=== PATIENT | female | born 1965 | race Caucasian/White ===

== ENCOUNTER 2024-11-14 09:30 | Emergency (ER) | payer OTHER, SELFPAY ==
--- NOTE | ~2024-11-14 | XR_ITS ---
XR foot RT min 3V 11/14/2024 10:02 Indication: Right foot pain Procedure: 4 views right foot Comparison: No prior studies for comparison. 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 Lisfranc joint intact. No acute fracture, subluxation or dislocation. There is a degenerative calcaneal enthesophyte at the plantar surface. No focal soft tissue abnormality. No foreign bodies. Impression: 1: No acute fracture. Reviewed, dictated and finalized at location A. Impression: 1: No acute fracture.
--- OUTSIDE RECORDS SUMMARY | 2024-11-14 09:33 | XMS_ITS | Encounter Summary ---
Author Organization [facility] Healthcare Address [address] [place] [address] Care Team Providers Care Home Care Administrator Name Role Phone Aaron Tirado MD Primary Care Provider [phone]- [phone] Reason for Visit * Diagnostic Imaging (Routine) - Closed Specialty Diagnoses / Procedures Referred By Cuauhtemoc jesus Referred To Contact Procedures Breast Imaging Diagnostic Outside Reference Transcribed Order, Provider Referral ID Status Reason Start Date Expiration Date Visits Re quested Visits Authorized [id number] Closed 04/01/2023 04/30/2024 1 1 Encounter Details Date Type Department Care Team (Late st Contact Info) Description 10/05/2017 Hospital Encounter [facility] [place] [address] Social History Tobacco Use Types Packs/Day Years Used Date Smoking Tobacco: Every Day Cigarettes 0.5 15 Vaping Smokeless Tobacco: Current [facility] Utilities Answer Date Recorded In the past 12 months has [email or web address] electric, gas, oil, or water company threatened to shut off services in your home? No 02/04/2023 Humiliation, Afraid, Rape, and Kick questionnair e Answer Date Recorded Within the last year, have y ou been afraid of your partner or ex-partner? No 02/04/2023 Within the last year, have y ou been humiliated or emotionally abused in other ways by your partner or ex-partner? No Within the last year, have y ou been kicked, hit, slapped, or otherwise physically hurt by your partner or ex-partner? No 02/04/2023 Within the last year, have y ou been raped or forced to have any kind of sexual activity by your partner or ex-partner? No 02/04/2023 Social Connection and Isolation Panel Answer Date Recorded In a typical week, how many times do you talk on the phone with family, friends, or neighbors? More than three times a week 02/04/2023 How often do you get togethe r with friends or relatives? More than three times a week 02/04/2023 How often do you attend chur ch or restorationism services? Never 02/04/2023 Do you belong to any clubs o r organizations such as taoist groups, unions, fraternal or athletic groups, or school groups? No 02/04/2023 How often do you attend meet ings of the clubs or organizations you belong to? Never 02/04/2023 Are you , , di vorced, , never , or living with a partner? 02/04/2023 AUDIT-C Answer Date Recorded Q1: How often do you have a drink containing alc ohol? 2-4 times a month 12/17/2023 Q2: How many drinks containi ng alcohol do you have on a typical day when you are drinking? 5 or 6 12/17/2023 Q3: How often do you have si x or more drinks on one occasion? Weekly 12/17/2023 Overall Financial Resource Strain (CARDIA) Answe r Date Recorded How hard is it for you to pa y for the very basics like food, housing, medical care, and heating? Not hard at all 02/04/2023 PHQ-2 Answer Date Recorded PHQ-2 Total Score (If total score is 3 or more points, staff should administer the PHQ-9) 0 11/08/2024 [facility] - Occupational Stress Questionnaire Answer Date Recorded Do you feel stress - tense, restless, nervous, or anxious, or unable to sleep at night because your mind is troubled all the time - these days? Rather much 02/04/2023 Exercise Vital Sign Answer Date Recorde d On average, how many days pe r week do you engage in moderate to strenuous exercise (like a brisk walk)? 5 days 02/04/2023 On average, how many minutes do you engage in exercise at this level? 30 min 02/04/2023 Hunger Vital Sign Answer Date Recorded Within the past 12 months, y ou worried that your food would run out before you got the money to buy more. Never true 02/05/20 23 Within the past 12 months, t he food you bought just didn't last and you didn't have money to get more. Never true 02/04/2023 PRAPARE - Transportation Answer Date Re corded In the past 12 months, has l ack of transportation kept you from medical appointments or from getting medications? No 04/2022 In the past 12 months, has l ack of transportation kept you from meetings, work, or from getting things needed for daily living? No 02/04/2023 Housing Stability Vital Sign Answer Efraín e Recorded In the last 12 months, was t here a time when you were not able to pay the mortgage or rent on time? No 02/04/2023 In the last 12 months, how many places have you lived? 2 02/04/2023 In the last 12 months, was t here a time when you did not have a steady place to sleep or slept in a custodial (including now)? No 02/04/2023 Personal Safety Answer Date Recorded Have you ever been in or are you currently in a harmful physical or emotional relationship or is someone making you feel afraid or unsafe? Denies 12/17/2023 Comments Unknown Sex and Gender Information Value Date Recorded Sex Assigned at Not on file Legal Sex Female 9:57 AM PRODUCT ASSEMBLER Gender Identity Female 03/02/2024 8:24 AM PRODUCT ASSEMBLER Sexual Orientation Straight 03/02/2024 8: 24 AM PRODUCT ASSEMBLER documented as of this encounter Functional Status * AUDIT-C Score Answer Date of Assessment Author 7 12/17/2023 7:14 AM Isabella Mcqueen RN * Question Answer Date of Assessment Author Q1: How often do you have a drink containing alcohol? 2-4 times a month 12/17/2023 7:14 AM CDT Devaughn, Katharin e I., RN Q2: How many drinks containing alcohol do you have on a typical day when you are drinking? 5 or 6 12/17/2023 7:14 AM CDT David Cantor RN Q3: How often do you have six or more drinks on one occasion? Weekly 12/17/2023 7:14 AM CDT David Cantor I. RN documented as of this encounter Plan of Treatment Not on file documented as of this encounter Procedures Procedure Name Priority Date/Time Associated Diagnosis Comments BREAST IMAGING MG DIAGNOSTIC OUTSIDE REFERENCE Routine 10/05/2017 12:00 AM CDT documented in this encounter Results * Breast Imaging Diagnostic Outside Reference (10/05/2017 12:00 AM CDT) Impressions [facility] - 04/01/2023 12:52 PM PRODUCT ASSEMBLER These images are for Reference purposes only and have not been reviewed by [facility]. There will be no report generated by a [facility] Radiologist. Narrative [facility] - 04/01/2023 12:52 PM PRODUCT ASSEMBLER EXAMINATION: Images For Reference Purposes Only us Provider Transcribed Order IMG MAMMO PROCEDURES Final Result [facility] documented in this encounter Visit Diagnoses Not on filedocumented in this encounter Additional Health Concerns Infection Onset Date Last Indicated Resolved Time COVID: Suspected 10/05/2023 10/05/2023 10/05/2023 10:53 AM CDT COVID19 10/05/2023 10/05/2023 10/15/2023 3:06 AM CDT COVID: Recovered Comment:Added based on recent COVID infection. 10/15/2023 10/15/2023 01/13/2024 3:05 AM C DT COVID: Suspected 04/13/2024 04/13/2024 04/13/2024 11:43 AM PRODUCT ASSEMBLER documented as of this encounter Care Teams Home Care Administrator Relationship Specialty Start Date End Date Aaron Tirado MD [address] [place] [address] PCP - General 06/24/07 02/03/23 documented as of this encounter
--- OUTSIDE RECORDS SUMMARY | 2024-11-14 09:33 | XMS_ITS | Encounter Summary ---
Author Organization [facility] Healthcare Address [address] [place] [address] Care Team Providers Care Lapping Machine Tender Name Role Phone Aaron Tirado MD Primary Care Provider [phone]- [phone] Reason for Visit * Diagnostic Imaging (Routine) - Closed Specialty Diagnoses / Procedures Referred By Cuauhtemoc jesus Referred To Contact Procedures Breast Imaging Diagnostic Outside Reference Transcribed Order, Provider Referral ID Status Reason Start Date Expiration Date Visits Re quested Visits Authorized [id number] Closed 04/01/2023 04/30/2024 1 1 Encounter Details Date Type Department Care Team (Late st Contact Info) Description 10/20/2018 Hospital Encounter [facility] [place] [address] Social History Tobacco Use Types Packs/Day Years Used Date Smoking Tobacco: Every Day Cigarettes 0.5 15 Vaping Smokeless Tobacco: Current [facility] Utilities Answer Date Recorded In the past 12 months has e electric, gas, oil, or water company threatened [...] often do you attend chur ch or roman catholic services? Never 02/04/2023 Do you belong to any clubs o r organizations such as tenriism groups, unions, fraternal or athletic groups, or [...] staff should administer the PHQ-9) 0 11/08/2024 [facility] - Occupational Stress [...] place to sleep or slept in a residential (including now)? No 02/04/2023 Personal Safety Answer Date Recorded Have you ever been in or are you currently in a harmful physical or emotional relationship or is someone making you feel afraid or unsafe? Denies 12/17/2023 Comments Unknown Sex and Gender Information Value Date Recorded Sex Assigned at Not on file Legal Sex Female 9:57 AM BULB WEEDER Gender Identity Female 03/02/2024 8:24 AM BULB WEEDER Sexual Orientation Straight 03/02/2024 8: 24 AM BULB WEEDER documented as of this encounter Functional Status [...] BREAST IMAGING MG DIAGNOSTIC OUTSIDE REFERENCE Routine 10/20/2018 12:00 AM CDT documented in this encounter Results * Breast Imaging Diagnostic Outside Reference (10/20/2018 12:00 AM CDT) Impressions [facility] - 04/01/2023 12:51 PM BULB WEEDER These images are for Reference purposes only and have not been reviewed by [facility]. There will be no report generated by a [facility] Radiologist. Narrative [facility] - 04/01/2023 12:51 PM BULB WEEDER EXAMINATION: Images For Reference Purposes Only us [...] COVID: Suspected 04/13/2024 04/13/2024 04/13/2024 11:43 AM BULB WEEDER documented as of this encounter Care Teams Lapping Machine Tender Relationship Specialty Start Date End Date Aaron Tirado MD [address] [place] [address] PCP - General 06/24/07 02/03/23 documented as of this encounter
--- OUTSIDE RECORDS SUMMARY | 2024-11-14 09:33 | XMS_ITS | Encounter Summary ---
Author Organization [facility] Healthcare Address [address] [place] [address] Care Team Providers Care Glass Loading Equipment Tender Name Role Phone Aaron Tirado MD Primary Care Provider [phone]- [phone] Reason for Visit * Diagnostic Imaging (Routine) - Closed Specialty Diagnoses / Procedures Referred By Cuauhtemoc jesus Referred To Contact Procedures Breast Imaging Diagnostic Outside Reference Transcribed Order, Provider Referral ID Status Reason Start Date Expiration Date Visits Re quested Visits Authorized [id number] Closed 04/01/2023 04/30/2024 1 1 Encounter Details Date Type Department Care Team (Late st Contact Info) Description 02/22/2019 Hospital Encounter [facility] [place] [address] Social History Tobacco Use Types Packs/Day Years Used Date Smoking Tobacco: Every Day Cigarettes 0.5 15 Vaping Smokeless Tobacco: Current [facility] Utilities Answer Date Recorded In the past [...] often do you attend chur ch or baptism services? Never 02/04/2023 Do you belong to any clubs o r organizations such as pentecostal groups, unions, fraternal or athletic groups, or [...] staff should administer the PHQ-9) 0 11/08/2024 [facility] - Occupational Stress [...] place to sleep or slept in a jail (including now)? No 02/04/2023 Personal Safety Answer Date Recorded Have you ever been in or are you currently in a harmful physical or emotional relationship or is someone making you feel afraid or unsafe? Denies 12/17/2023 Comments Unknown Sex and Gender Information Value Date Recorded Sex Assigned at Not on file Legal Sex Female 9:57 AM WILD OYSTER HARVESTER Gender Identity Female 03/02/2024 8:24 AM WILD OYSTER HARVESTER Sexual Orientation Straight 03/02/2024 8: 24 AM WILD OYSTER HARVESTER documented as of this encounter Functional Status * AUDIT-C Score Answer Date of Assessment Author 7 12/17/2023 7:14 AM Isabella Mcqueen RN * Question Answer Date of Assessment Author Q1: How often do you have a drink containing alcohol? 2-4 times a month 12/17/2023 7:14 AM David Mcqueen RN Q2: How many drinks containing alcohol do you have on a typical day when you are drinking? 5 or 6 12/17/2023 7:14 AM YOLANDAT David Cantor RN Q3: How often do you have six or more drinks on one occasion? Weekly 12/17/2023 7:14 AM YOLANDAT David Cantor RN documented as of this encounter Plan of Treatment Not on file documented as of this encounter Procedures Procedure Name Priority Date/Time Associated Diagnosis Comments BREAST IMAGING MG DIAGNOSTIC OUTSIDE REFERENCE Routine 02/22/2019 12:00 AM WILD OYSTER HARVESTER documented in this encounter Results * Breast Imaging Diagnostic Outside Reference (02/22/2019 12:00 AM WILD OYSTER HARVESTER) Impressions [facility] - 04/01/2023 12:48 PM WILD OYSTER HARVESTER These images are for Reference purposes only and have not been reviewed by [facility]. There will be no report generated by a [facility] Radiologist. Narrative [facility] - 04/01/2023 12:48 PM WILD OYSTER HARVESTER EXAMINATION: Images For Reference Purposes Only us [...] COVID: Suspected 04/13/2024 04/13/2024 04/13/2024 11:43 AM WILD OYSTER HARVESTER documented as of this encounter Care Teams Glass Loading Equipment Tender Relationship Specialty Start Date End Date Aaron Tirado MD [address] [place] [address] PCP - General 3/20/08 10/31/23 documented as of this encounter
--- OUTSIDE RECORDS SUMMARY | 2024-11-14 09:33 | XMS_ITS | Encounter Summary ---
Author Organization [facility] Healthcare Address [address] [place] [address] Care Team Providers Care Tile Layer Supervisor Name Role Phone Meron Lopes FUR DRY CLEANER Primary Care Provider [phone] Encounter Details Date Type Department Care Team (Late st Contact Info) Description 11/10/2024 Results Follow-Up [facility] [address] [place] [address] Breanna Uribe, SAVANNA [address] [place] [address] Vitamin D 25 hydroxy, Vitamin B12, TSH, Additional followed-up results: 6 Social History Tobacco Use Types Packs/Day Years Used Date Smoking Tobacco: Every Day Cigarettes 0.5 15 Vaping Smokeless Tobacco: Current [facility] Utilities Answer Date Recorded In the [...] 02/04/2023 How often do you attend chur or yazidi services? Never 02/04/2023 Do you belong to any clubs o r organizations such as evangelical groups, unions, fraternal or athletic groups, or [...] staff should administer the PHQ-9) 0 11/08/2024 [facility] - Occupational [...] place to sleep or slept in a detention (including now)? No 02/04/2023 Personal Safety Answer Date Recorded Have you ever been in or are you currently in a harmful physical or emotional relationship or is someone making you feel afraid or unsafe? Denies 12/17/2023 Comments Unknown Sex and Gender Information Value Date Recorded Sex Assigned at Not on file Legal Sex Female 9:57 AM KLYSTROM TUBE TESTER Gender Identity Female 03/02/2024 8:24 AM KLYSTROM TUBE TESTER Sexual Orientation Straight 03/02/2024 8: 24 AM KLYSTROM TUBE TESTER documented as of this encounter Plan of Treatment Not on file documented as of this encounter Visit Diagnoses Not on filedocumented in this encounter Care Teams Tile Layer Supervisor Relationship Specialty Start Date End Date Meron Lopes NP PCP - General Family Medicine 02/04/23 documented as of this encounter
--- OUTSIDE RECORDS SUMMARY | 2024-11-14 09:33 | XMS_ITS | Encounter Summary ---
Author Organization [facility] Healthcare Address [address] [place] [address] Care Team Providers Care Bleach Chlorinator Name Role Phone Aaron Tirado MD Primary Care Provider [phone] Reason for Visit * Diagnostic Imaging (Routine) - Closed Specialty Diagnoses / Procedures Referred By Cuauhtemoc jesus Referred To Contact Procedures Breast Imaging US Outside Reference Transcribed Order, Provider Referral ID Status Reason Start Date Expiration Date Visits Re quested Visits Authorized [id number] Closed 04/01/2023 04/30/2024 1 1 Encounter Details Date Type Department Care Team (Late st Contact Info) Description 08/26/2019 Hospital Encounter [facility]) [address] [place] [id number] Social History Tobacco Use Types Packs/Day Years Used Date Smoking Tobacco: Every Day Cigarettes 0.5 15 Vaping Smokeless Tobacco: Current [facility] Utilities Answer Date Recorded In the past 12 months has [employer] electric, gas, oil, or water company threatened [...] often do you attend chur ch or denominational services? Never 02/04/2023 Do you belong to any clubs o r organizations such as congregational groups, unions, fraternal or athletic groups, or [...] staff should administer the PHQ-9) 0 11/08/2024 [facility] - Occupational Stress [...] place to sleep or slept in a long-term (including now)? No 02/04/2023 Personal Safety Answer Date Recorded Have you ever been in or are you currently in a harmful physical or emotional relationship or is someone making you feel afraid or unsafe? Denies 12/17/2023 Comments Unknown Sex and Gender Information Value Date Recorded Sex Assigned at Not on file Legal Sex Female 9:57 AM CONSTRUCTION EQUIPMENT TECHNICIAN Gender Identity Female 03/02/2024 8:24 AM CONSTRUCTION EQUIPMENT TECHNICIAN Sexual Orientation Straight 03/02/2024 8: 24 AM CONSTRUCTION EQUIPMENT TECHNICIAN documented as of this encounter Functional Status [...] Priority Date/Time Associated Diagnosis Comments BREAST IMAGING US OUTSIDE REFERENCE Routine 08/26/2019 12:00 AM CDT documented in this encounter Results * Breast Imaging US Outside Reference (08/26/2019 12:00 AM CDT) Impressions [facility] - 04/01/2023 12:47 PM CONSTRUCTION EQUIPMENT TECHNICIAN These images are for Reference purposes only and have not been reviewed by [facility]. There will be no report generated by a [facility] Radiologist. Narrative [facility] - 04/01/2023 12:47 PM CONSTRUCTION EQUIPMENT TECHNICIAN EXAMINATION: Images For Reference Purposes Only us [...] COVID: Suspected 04/13/2024 04/13/2024 04/13/2024 11:43 AM CONSTRUCTION EQUIPMENT TECHNICIAN documented as of this encounter Care Teams Bleach Chlorinator Relationship Specialty Start Date End Date Aaron Tirado MD [address] [place] [address] PCP - General 06/24/07 02/03/23 documented as of this encounter
--- OUTSIDE RECORDS SUMMARY | 2024-11-14 09:33 | XMS_ITS | Clinical Summary ---
Author Organization [facility] Address [address] [place] [address] Phone Care Team Providers Care Sawdust Drier Name Role Phone Rony Gaspar MD Primary Care Provider [phone] Allergies Active Allergy Reactions Criticality Noted Date Comments Doxycycline Other (See Comments) Low 03/23/2023 Does not want to be prescribed doxycycline. Mother and daughter have taken and made them pass out. Medications fluconazole (DIFLUCAN) 150 mg Oral tabletIndication s:Vaginal discharge Take 1 Tab by mouth daily. 1 Tab 10 09/16/2010 Active norethindrone-et hinyl estradiol (FEMHRT LOW DOSE) 0.5-2.5 mg-mcg Oral tablet Take 1 Tab by mouth daily. 1 Package 3 12/02/2011 Active ALPRAZolam (XANAX) 0.25 mg tablet Take 0.25 mg by mouth. 01/15/2024 Active aspirin (CORRINE CHEWABLE) 81 mg Tablet, Chewable Take 81 mg by mouth daily. Active levothyroxine 25 mcg tablet Take 25 mcg by mouth daily. 12/09/2023 Active ibuprofen (ADVIL;MOTRIN) 100 mg/5 mL suspension Take by mouth every 6 hours as needed for Pain, Mild. Active naproxen sodium (ALEVE) 220 mg Tablet Take 220 mg by mouth. Active atorvastatin (LIPITOR) 10 mg tablet Take 1 Tablet (10 mg) by mouth daily. 100 Tablet 3 02/29/2024 Active Active Problems No known active problems Encounters Date Type Department Care Team Description 11/08/2024 External Device Data [facility] Provider, Abstract 09/27/2024 External Device Data [facility] Provider, Abstract 08/30/2024 External Device Data [facility] Provider, Abstract 08/24/2024 External Device Data [facility] Provider, Abstract 08/23/2024 External Device Data [facility] Provider, Abstract from Last 3 Months Family History Medical History Relation Name Comments Cancer Brother Diabetes Brother Cancer Father Hypertension Father Diabetes Sister Relation Name Status Comments Brother Father Alive Maternal Grandfather Maternal Grandmother Mother Alive Paternal Grandfather Paternal Grandmother Sister Alive Social History Tobacco Use Types Packs/Day Years Used Date Smoking Tobacco: Some Days Cigarettes Smokeless Tobacco: Never Tobacco Cessation:Ready to Q uit: Not Asked; Counseling Given: Not Answered Alcohol Use Standard Drinks/Week Comments Yes 0 (1 standard drink = 0.6 oz pur e alcohol) social Comments No Sex and Gender Information Value Date Recorded Sex Assigned at Not on file Legal Sex Female 6:02 AM [employer] Gender Identity Not on file Sexual Orientation Not on file Last Filed Vital Signs Vital Sign Reading Time Taken Comments Blood Pressure 131/88 02/29/2024 3:01 PM [employer] PRES[employer] Pulse 98 02/29/2024 3:01 PM [employer] PRES[employer] Temperature - - Respiratory Rate - - Oxygen Saturation 97% 02/29/2024 3:01 PM [employer] PRES[employer] Inhaled Oxygen Concentration - - Weight 88 kg (194 lb) 02/29/2024 3:01 PM [employer] PRES[employer] Height 167.6 cm (5' 6) 02/29/2024 3:01 PM [employer] PRES[employer] Body Mass Index 31.31 02/29/2024 3:01 PM [employer] PRESIDENT Plan of Treatment Health Maintenance Due Date Last Done Comments Pre-Diabetes and Diabetes Screening 1965 DTAP/TDAP/TD VACCINES (1 - Tdap) 10/04/1983 FIT-DNA Q 3 years 2009 FIT/FOBT Q 1 year 2009 Flex Sig/CT Colonography Q 5 years 2009 PAP SMEAR 09/16/2013 09/16/2010 ZOSTER VACCINE (1 of 2) 2014 CERVICAL CANCER SCREENING 09/17/2015 HPV/Cotest (21-29) 09/17/2015 09/16/2010 HPV/Cotest (30-65) 09/17/2015 09/16/2010 BREAST CANCER SCREENING 10/18/2024 10/19/19 24, 05/04/2023, 03/31/2023, Additional history exists INFLUENZA VACCINE (#1) 2024 COLORECTAL SCREENING 12/16/2033 12/17/2023, 12/17/19 Colorectal Cancer Screening 12/16/2033 RSV VACCINE (60+ or ) (1 - 1-dose 75+ series) 10/04/2039 HEPATITIS B VACCINES Aged Out No long er eligible based on patient's age to complete this topic Procedures Procedure Name Priority Date/Time Associated Diagnosis Comments CERV/VAG CYTOPATH, THIN PREP IMAGR RFLX HPV Routine 09/16/2010 5:01 PM CDT Routine gynecological examination from Last 3 Months or Most Recently Relevant to Health Maintenance Results * CERV/VAG CYTOPATH, THIN PREP IMAGR RFLX HPV (09/16/2010 5:01 PM CDT) PAP INTERP Negative for intraepithelial lesion or malignancy. [facility] CYTOLOGY INFECTION Fungal organisms morphologically consistent with Skye spp. [facility] Bilingual [employer] Retail Pap Comment This Pap test has been evaluated with computer assisted technology. Based on the cytology result, reflex High Risk HPV DNA testing was not performed. [facility] ADEQUACY: Satisfactory for evaluation. Endocervical/trans formation zone component present. [facility] CLINICAL INFORMATION Information not provided [facility] SOURCE [facility] PREV PAP: WNL [facility] CYTOTECHNOLOGI ST: [place], [place](ASCP) [facility] Comment: Lab test performed by: [employer] [address] [address] CAROL MCCALL DO LAST MENSTRUAL PERIOD ABLATION [facility] PREV BX: INFORMATION NOT PROVIDED [facility] REPORT STATUS [facility]AL [facility] Endoc[facility]ical 09/16/2010 5:01 PM CDT 09/16/2010 5:04 PM CDT Comment:ENDOCERVICAL us Murphy Ji MD PATHOLOGY/CYTOLOGY ORDERA MARA Final Result [facility] CLIA# [id number] [address] [place] [address] from Last 3 Months or Most Recently Relevant to [place] [address] [place] [address] [facility] [id number] Care Teams Sawdust Drier Relationship Specialty Start Date End Date Rony Gaspar MD [address] [place] [address] PCP - General Family Practice 12/17/23
--- OUTSIDE RECORDS SUMMARY | 2024-11-14 09:33 | XMS_ITS | Clinical Summary ---
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 diagnostic for diabetes. In the absence of unequivocal hyperglycemia, results should be confirmed by repeat testing. The classification and Diagnosis of Diabetes Diabetes Care 202; 46: S19-S40. Current interpretive data was last revised 2022. Testing performed by: [address] [address] Calcium 9.5 8.5 - 10.3 mg/dL [facility] ([place]) Comment:Testing performed by : [address], [address] Bilirubin, total 0.9 0.1 - 1.2 mg/dL [facility] ([place]) Comment:Testing performed by : [address] [address] Protein, pl 7.1 6.5 - 8.5 g/dL [facility] ([place]) Comment:Testing performed by : [facility], [address] [place] [address]., [address] Albumin 4.4 3.5 - 5.0 g/dL [facility] ([place]) Comment:Testing performed by : [facility], [address] [place] [address]., [address] Alk phos 76 40 - 130 Units/L [facility] ([place]) Comment:Testing performed by : [facility], [address] [place] [address]., [address] ALT 36 7 - 45 Units/L [facility] ([place]) Comment:Testing performed by : [facility], [address] [place] [address], [address] AST 33 10 - 45 Units/L [facility] ([place]) Comment:Testing performed by : [facility], [address] [place] [address]., [address] Blood 11/10/2024 8:14 AM CDT 11/10/2024 1:56 PM CDT us Breanna Uribe NP LAB BLOOD ORDERABLES Final Re sult [facility] ([place]) [facility] [place] [address] * MRI Breast Bilateral W WO Contrast (10/14/2024 10:17 AM CDT) Anatomical Region Laterality Modality Breast Bilateral Magnetic Resonan ce 10/14/2024 3:23 PM CDT Impressions 10/14/2024 4:11 PM CDT Asymmetric, left greater than right, marked background parenchymal enhancement that follows the breast parenchymal pattern. Given the asymmetric appearance of the background enhancement, recommend six-month follow-up breast MR to confirm benignity. OVERALL FINAL ASSESSMENT: BI-RADS Category 3: Probably Benign. RECOMMENDATION: Follow-up bilateral breast MR in 6 months. Dictated by: Aj Cornejo M.D. The radiology attending physician has personally reviewed this study, and had reviewed and/or edited this written report and agrees with it. Electronically signed by: Sonia Lainez M.D. Narrative 10/14/2024 4:11 PM CDT EXAMINATION: 1. MRI EXAMINATION OF THE BREASTS WITH AND WITHOUT CONTRAST 2. 3D POST PROCESSING ON A DEDICATED 3D WORKSTATION HISTORY: High-risk Screening. 59-year-old woman, now approximately 9.5 years status post right partial mastectomy and sentinel lymph node biopsy for a right breast T1aN0 invasive ductal carcinoma. She did not undergo adjuvant chemotherapy. She underwent adjuvant radiation therapy and was then initiated on endocrine therapy, completing 5 years of treatment. She underwent ultrasound-guided core needle biopsy for a BI-RADS Category 4A cystic mass in the 12 o'clock position of the left breast on 05/07/2023, which resulted as cysts with apocrine metaplasia. She underwent stereotactic tissue sampling of a left central upper developing asymmetry on 04/28/2024 which demonstrated benign proliferative epithelial changes with associated microcalcifications and pseudo-angiomatous stromal hyperplasia. TECHNIQUE: MRI examination of the breasts per breast tumor protocol with and without gadolinium contrast. A dedicated breast imaging coil was used. The images were transferred to a breast CAD system for 3D post processing and contrast kinetics analysis. CONTRAST: Gadoterate meglumine, 16 ml COMPARISON: Stereotactic breast biopsy from 04/28/2024, diagnostic mammography from 04/20/2024, ultrasound-guided breast biopsy from 05/06/2023, ultrasound left breast from 05/04/2023, multiple other previous mammography studies, dating back to 2007. BREAST COMPOSITION: Scattered fibroglandular tissue BACKGROUND PARENCHYMAL ENHANCEMENT: Marked, which lowers the sensitivity of MRI FINDINGS: Two areas of susceptibility artifact in the left upper breast correspond to previously placed tissue markers. Asymmetric marked background parenchymal enhancement, left greater than right, without suspicious mass or non-mass enhancement. A preponderance of enhancing tissue in the left breast corresponds to the two sites of prior benign biopsies. No abnormally enlarged lymph nodes are identified in the visualized portions of either axilla. us Antonieta Gaspar NP IMG MRI PROCEDURES Final R esult * Diagnostic Mammogram Bilateral W Raj (04/20/2024 10:34 AM CYCLE ANALYST) Anatomical Region Laterality Modality Breast Bilateral Mammography 04/20/2024 1:21 PM CYCLE ANALYST Impressions 04/20/2024 1:25 PM CYCLE ANALYST Developing asymmetry in the left breast, which is moderately suspicious for malignancy. Biopsy of this lesion is warranted and amenable to stereotactic approach. OVERALL FINAL ASSESSMENT: SUSPICIOUS. BI-RADS Category 4B: Moderate suspicion for malignancy. RECOMMENDATION: Dr. Farzana Galvez discussed the above findings and recommendations with the patient. She has been scheduled for stereotactic biopsy on 04/27/2024 at 1:15 PM. This facility will contact the referring clinician's office for an order. Dictated by: Bob Waite M.D. The radiology attending physician has personally reviewed this study, and had reviewed and/or edited this written report and agrees with it. Electronically signed by: Farzana Galvez M.D. Narrative 04/20/2024 1:25 PM CYCLE ANALYST EXAMINATION: BILATERAL DIGITAL DIAGNOSTIC MAMMOGRAM INCLUDING CAD AND BILATERAL DIGITAL BREAST TOMOSYNTHESIS; LEFT BREAST SONOGRAM HISTORY: 58-year-old woman with history of invasive ductal carcinoma in the right breast status post lumpectomy in 2014 with focal asymmetries noted on the prior mammogram in the left breast the superiormost of the two is previously biopsied showing cysts with apocrine metaplasia. COMPARISON: Multiple mammograms dating back to 01/02/2020 TECHNIQUE: Full field digital mammographic views of BOTH breasts were performed, including computer aided detection (CAD) and BILATERAL digital breast tomosynthesis (DBT). Directed ultrasound evaluation of the LEFT breast was performed. BREAST PARENCHYMAL COMPOSITION: There are scattered areas of fibroglandular density. MAMMOGRAM FINDINGS: Developing asymmetry in the left central breast, which is of increased conspicuity compared to the prior mammogram. Surgical clip at the site of prior biopsy-proven cysts with apocrine metaplasia. The right breast is negative. There is no new suspicious abnormality in the RIGHT breast. SONOGRAM FINDINGS: There is no sonographic correlate for the developing asymmetry in the left central breast. Procedure Note Farzana Galvez MD - 04/20/2024 EXAMINATION: BILATERAL DIGITAL DIAGNOSTIC MAMMOGRAM INCLUDING CAD AND BILATERAL DIGITAL BREAST TOMOSYNTHESIS; LEFT BREAST SONOGRAM HISTORY: 58-year-old woman with history of invasive ductal carcinoma in the right breast status post lumpectomy in 2014 with focal asymmetries noted on the prior mammogram in the left breast the superiormost of the two is previously biopsied showing cysts with apocrine metaplasia. COMPARISON: Multiple mammograms dating back to 01/02/2020 TECHNIQUE: Full field digital mammographic views of BOTH breasts were performed, including computer aided detection (CAD) and BILATERAL digital breast tomosynthesis (DBT). Directed ultrasound evaluation of the LEFT breast was performed. BREAST PARENCHYMAL COMPOSITION: There are scattered areas of fibroglandular density. MAMMOGRAM FINDINGS: Developing asymmetry in the left central breast, which is of increased conspicuity compared to the prior mammogram. Surgical clip at the site of prior biopsy-proven cysts with apocrine metaplasia. The right breast is negative. There is no new suspicious abnormality in the RIGHT breast. SONOGRAM FINDINGS: There is no sonographic correlate for the developing asymmetry in the left central breast. IMPRESSION: Developing asymmetry in the left breast, which is moderately suspicious for malignancy. Biopsy of this lesion is warranted and amenable to stereotactic approach. OVERALL FINAL ASSESSMENT: SUSPICIOUS. BI-RADS Category 4B: Moderate suspicion for malignancy. RECOMMENDATION: Dr. Farzana Galvez discussed the above findings and recommendations with the patient. She has been scheduled for stereotactic biopsy on 04/27/2024 at 1:15 PM. This facility will contact the referring clinician's office for an order. Dictated by: Bob Waite M.D. The radiology attending physician has personally reviewed this study, and had reviewed and/or edited this written report and agrees with it. Electronically signed by: Farzana Galvez M.D. Antonieta Gaspar NP IM MAMMO PROCEDURES Final Result * Colonoscopy (12/17/2023 7:09 AM CDT) Anatomical Region Laterality Modality Other Narrative Procedure Note Shad Henderson MD - 12/17/2023 7:09 AM CDT [facility] Patient Name: Angélica Rodarte Procedure Date: 12/17/2023 7:09 AM Date of : 1965 Admit Type: Outpatient Age: 58 Gender: Female Attending MD: Shad Henderson M.D. Room: REPLACED BY [facility] ENDOSCOPY ROOM 2 Note Status: Finalized Patient Profile: This is a 58 year old female history of hypothyroidism, breast cancer, anxiety anddepression here for colon Polyp surveillance. Last colonoscopy 5-6 years ago per patient had a few benign polyps. Family history father with colon cancer. Procedure: Colonoscopy Indications: Screening in patient at increased risk: Familyhistory of 1st-degree relative with colorectal cancer, High risk colon cancer surveillance: Personal history of colonic polyps, Last colonoscopy 5 years ago Referring MD: Michaela Montalvo Providers: Shad Henderson M.D. Impression: - Perianal skin tags found on perianal exam. - One 5 mm polyp in the transverse colon, removedwith a cold snare. Resected and retrieved. - Two 5 to 6 mm polyps in the descending colon, removed with a cold snare. Resected andretrieved. - Diverticulosis in the left colon. - External and internal hemorrhoids. - Tortuous colon. Recommendation: - Patient has a contact number available for emergencies. The signs and symptoms of potential delayed complications were discussed with thepatient. Return to normal activities tomorrow. Written discharge instructions were provided to thepatient. - Discharge patient to home (with escort). - Resume previous diet. - Continue present medications. - Await pathology results. - Repeat colonoscopy in 3 years for surveillancebased on pathology results. - Return to referring physician as previously scheduled. Medicines: Monitored Anesthesia Care Complications: No immediate complications. Estimated Blood Loss: Estimated blood loss was minimal. Procedure: Pre-Anesthesia Assessment: - Prior to the procedure, a History and Physicalwas performed, and patient medications and allergieswere reviewed. The patient is competent. The risks and benefits of the procedure and the sedation optionsand risks were discussed with the patient. Allquestions were answered and informed consent was obtained. Patient identification and proposed procedure were verified by the physician, the building coordinator and the electroplating technician in the endoscopy suite. Mental Status Examination: normal. Prophylactic Antibiotics: The patient does not require prophylactic antibiotics. Prior Anticoagulants: The patient has taken no anticoagulant or antiplatelet agents. Afterreviewing the risks and benefits, the patient was deemed in satisfactory condition to undergo the procedure.The anesthesia plan was to use monitored anesthesiacare (MAC). Immediately prior to administration of medications, the patient was re-assessed foradequacy to receive sedatives. The heart rate, respiratory rate, oxygen saturations, blood pressure, adequacyof pulmonary ventilation, and response to care were monitored throughout the procedure. The physical status of the patient was re-assessed after the procedure. The benefits, risks and alternatives of theprocedure and sedation were discussed and informed consentwas obtained. All questions were answered. Please referto the signed informed consent document in the medical record. The bowel preparation used was Miralax via split dose instruction. The bowel preparation usedwas bisacodyl tablets via split dose instruction. The scope was passed under direct vision. TheColonoscope [id number] was introduced through the anus and advanced to the the cecum, identified by appendiceal orifice and ileocecal valve. The colonoscopy was somewhat difficult due to atortuous colon. The patient tolerated the procedure well.The quality of the bowel preparation was adequate.Bowel prep was administered using a split dose. Findings: Skin tags were found on perianal exam. A 5 mm polyp was found in the transverse colon. The polyp wassessile. The polyp was removed with a cold snare. Resection and retrieval were complete. Two flat polyps were found in the descending colon. The polyps were 5to 6 mm in size. These polyps were removed with a cold snare. Resectionand retrieval were complete. A few small-mouthed diverticula were found in the left colon. External and internal hemorrhoids were found during retroflexion. The colon (entire examined portion) was tortuous. Advancing the scope required using manual pressure. Shad Henderson M.D. 12/17/2023 9:04:02 AM Number of Addenda: 0 Note Initiated On: 12/17/2023 7:09 AM Procedure Code(s): --- Professional --- 17104, Colonoscopy, flexible; with removal of tumor(s), polyp(s), or other lesion(s) by snare technique --- Technical --- 34317, Colonoscopy, flexible; with removal of tumor(s), polyp(s), or other lesion(s) by snare technique Diagnosis Code(s): --- Professional --- Z80.0, Family history of malignant neoplasm of digestive organs Z86.010, Personal history of colonic polyps D12.3, Benign neoplasm of transverse colon (hepatic flexure orsplenic flexure) D12.4, Benign neoplasm of descending colon K64.8, Other hemorrhoids K64.4, Residual hemorrhoidal skin tags K57.30, Diverticulosis of large intestine without perforation orabscess without bleeding Q43.8, Other specified congenital malformations of intestine --- Technical --- Z80.0, Family history of malignant neoplasm of digestive organs Z86.010, Personal history of colonic polyps D12.3, Benign neoplasm of transverse colon (hepatic flexure orsplenic flexure) D12.4, Benign neoplasm of descending colon K64.8, Other hemorrhoids K64.4, Residual hemorrhoidal skin tags K57.30, Diverticulosis of large intestine without perforation orabscess without bleeding Q43.8, Other specified congenital malformations of intestine CPT copyright 202 [employer]. All rights reserved. The codes documented in this report are preliminary and upon multi craft maintenance technician reviewmay be revised to meet current compliance requirements. Recognized by the [employer] for promoting quality in endoscopy Shad Henderson MD ENDOSCOPY PROCEDURES Final Resul t from Last 3 Months or Most Recently Relevant to Health Maintenance Insurance [facility] Advance Directives For more information, please contact: [phone] * Full Code (Latest Code Status on File) Date Activated Date Inactivated Comments 12/17/2023 7:06 AM 12/17/2023 1:48 PM * Full Code Date Activated Date Inactivated Comments 12/17/2023 7:05 AM 12/17/2023 7:06 AM Care Teams Four Slide Machine Operator Relationship Specialty Start Date End Date Meron Lopes NP PCP - General Family Medicine 02/04/23
--- OUTSIDE RECORDS SUMMARY | 2024-11-14 09:33 | XMS_ITS | Encounter Summary ---
Author Organization [facility] Healthcare Address [address] [place] [address] Care Team Providers Care Sql Ssrs Ssis Developer Name Role Phone Aaron Tirado MD Primary Care Provider [phone] Reason for Visit * Diagnostic Imaging (Routine) - Closed Specialty Diagnoses / Procedures Referred By Cuauhtemoc jesus Referred To Contact Procedures Breast Imaging US Outside Reference Transcribed Order, Provider Referral ID Status Reason Start Date Expiration Date Visits Re quested Visits Authorized [id number] Closed 04/01/2023 04/30/2024 1 1 Encounter Details Date Type Department Care Team (Late st Contact Info) Description 02/22/2019 12:05 AM E/M ENGINEER Hospital Encounter [facility] [address] [place] [id number] Social History Tobacco Use Types Packs/Day Years Used Date Smoking Tobacco: Every Day Cigarettes 0.5 15 Vaping Smokeless Tobacco: Current [facility] Utilities Answer Date Recorded In the past 12 months has th e electric, gas, oil, or water company [...] often do you attend chur ch or congregational services? Never 02/04/2023 Do you belong to any clubs o r organizations such as sabianist groups, unions, fraternal or athletic groups, or [...] staff should administer the PHQ-9) 0 11/08/2024 [facility] Occupational Stress Questionnaire Answer [...] place to sleep or slept in a senior living (including now)? No 02/04/2023 Personal Safety Answer Date Recorded Have you ever been in or are you currently in a harmful physical or emotional relationship or is someone making you feel afraid or unsafe? Denies 12/17/2023 Comments Unknown Sex and Gender Information Value Date Recorded Sex Assigned at Not on file Legal Sex Female 9:57 AM E/M ENGINEER Gender Identity Female 03/02/2024 8:24 AM E/M ENGINEER Sexual Orientation Straight 03/02/2024 8: 24 AM E/M ENGINEER documented as of this encounter Functional Status [...] drinking? 5 or 6 12/17/2023 7:14 AM David Mcqueen RN Q3: How often do you have six or more drinks on one occasion? Weekly 12/17/2023 7:14 AM David Mcqueen RN documented as of this encounter Plan of Treatment Not on file documented as of this encounter Procedures Procedure Name Priority Date/Time Associated Diagnosis Comments BREAST IMAGING US OUTSIDE REFERENCE Routine 02/22/2019 12:05 AM E/M ENGINEER documented in this encounter Results * Breast Imaging US Outside Reference (02/22/2019 12:05 AM E/M ENGINEER) Impressions [facility] - 04/01/2023 12:50 PM E/M ENGINEER These images are for Reference purposes only and have not been reviewed by [facility]. There will be no report generated by a [facility] Radiologist. Narrative [facility] - 04/01/2023 12:50 PM E/M ENGINEER EXAMINATION: Images For Reference Purposes Only us [...] COVID: Suspected 04/13/2024 04/13/2024 04/13/2024 11:43 AM E/M ENGINEER documented as of this encounter Care Teams Sql Ssrs Ssis Developer Relationship Specialty Start Date End Date Aaron Tirado MD [address] [place] [address] PCP - General 06/24/07 02/03/23 documented as of this encounter
--- OUTSIDE RECORDS SUMMARY | 2024-11-14 09:34 | XMS_ITS | Encounter Summary ---
Author Organization [facility] Healthcare Address [address] [place] [address] Care Team Providers Care Industrial Engineering Technologist Name Role Phone Aaron Tirado MD Primary Care Provider [phone]- [phone] Reason for Visit * Diagnostic Imaging (Routine) - Closed Specialty Diagnoses / Procedures Referred By Cuauhtemoc jesus Referred To Contact Procedures Breast Imaging US Outside Reference Transcribed Order, Provider Referral ID Status Reason Start Date Expiration Date Visits Re quested Visits Authorized [id number] Closed 04/01/2023 04/30/2024 1 1 Encounter Details Date Type Department Care Team (Late st Contact Info) Description 04/02/2020 Hospital Encounter [facility] [address] [place] [id number] Social History Tobacco Use Types Packs/Day Years Used Date Smoking Tobacco: Every Day Cigarettes 0.5 15 Vaping Smokeless Tobacco: Current [facility] Utilities Answer Date Recorded In the past [...] often do you attend chur ch or yarsanism services? Never 02/04/2023 Do you belong to any clubs o r organizations such as gnosticism groups, unions, fraternal or athletic groups, or [...] staff should administer the PHQ-9) 0 11/08/2024 [facility] - Occupational [...] place to sleep or slept in a fpc (including now)? No 02/04/2023 Personal Safety Answer Date Recorded Have you ever been in or are you currently in a harmful physical or emotional relationship or is someone making you feel afraid or unsafe? Denies 12/17/2023 Comments Unknown Sex and Gender Information Value Date Recorded Sex Assigned at Not on file Legal Sex Female 9:57 AM BOTTLE CARRIER Gender Identity Female 03/02/2024 8:24 AM BOTTLE CARRIER Sexual Orientation Straight 03/02/2024 8: 24 AM BOTTLE CARRIER documented as of this encounter Functional Status [...] Comments BREAST IMAGING US OUTSIDE REFERENCE Routine 04/02/2020 12:00 AM BOTTLE CARRIER documented in this encounter Results * Breast Imaging US Outside Reference (04/02/2020 12:00 AM BOTTLE CARRIER) Impressions [facility] - 04/01/2023 12:44 PM BOTTLE CARRIER These images are for Reference purposes only and have not been reviewed by [facility]. There will be no report generated by a [facility] Radiologist. Narrative [facility] - 04/01/2023 12:44 PM BOTTLE CARRIER EXAMINATION: Images For Reference Purposes Only us [...] COVID: Suspected 04/13/2024 04/13/2024 04/13/2024 11:43 AM BOTTLE CARRIER documented as of this encounter Care Teams Industrial Engineering Technologist Relationship Specialty Start Date End Date Aaron Tirado MD [address] [place] [address] PCP - General 06/24/07 02/03/23 documented as of this encounter
--- OUTSIDE RECORDS SUMMARY | 2024-11-14 09:34 | XMS_ITS | Encounter Summary ---
Author Organization [facility] Healthcare Address [address] [place] [address] Care Team Providers Care Assistant Manager Quality Management Name Role Phone Aaron Tirado MD Primary Care Provider [phone] Reason for Visit * Diagnostic Imaging (Routine) - Closed Specialty Diagnoses / Procedures Referred By Cuauhtemoc jesus Referred To Contact Procedures Breast Imaging Diagnostic Outside Reference Transcribed Order, Provider Referral ID Status Reason Start Date Expiration Date Visits Re quested Visits Authorized [id number] Closed 04/01/2023 04/30/2024 1 1 Encounter Details Date Type Department Care Team (Late st Contact Info) Description 12/09/2019 Hospital Encounter [facility] [address] [place] [id number] Social History Tobacco Use Types Packs/Day Years Used Date Smoking Tobacco: Every Day Cigarettes 0.5 15 Vaping Smokeless Tobacco: Current [facility] Utilities Answer Date Recorded In the past 12 months has [employer], gas, oil, or water company threatened to [...] often do you attend chur ch or adventist services? Never 02/04/2023 Do you belong to any clubs o r organizations such as mosque groups, unions, fraternal or athletic groups, or [...] staff should administer the PHQ-9) 0 11/08/2024 [facility] - [...] place to sleep or slept in a [place] facility (including now)? No 02/04/2023 Personal Safety Answer Date Recorded Have you ever been in or are you currently in a harmful physical or emotional relationship or is someone making you feel afraid or unsafe? Denies 12/17/2023 Comments Unknown Sex and Gender Information Value Date Recorded Sex Assigned at Not on file Legal Sex Female 9:57 AM ASSOCIATE PROFESSOR OF COUNSELING Gender Identity Female 03/02/2024 8:24 AM ASSOCIATE PROFESSOR OF COUNSELING Sexual Orientation Straight 03/02/2024 8: 24 AM ASSOCIATE PROFESSOR OF COUNSELING documented as of this encounter Functional Status [...] BREAST IMAGING MG DIAGNOSTIC OUTSIDE REFERENCE Routine 12/09/2019 12:00 AM CDT documented in this encounter Results * Breast Imaging Diagnostic Outside Reference (12/09/2019 12:00 AM CDT) Impressions [facility] - 04/01/2023 12:46 PM ASSOCIATE PROFESSOR OF COUNSELING These images are for Reference purposes only and have not been reviewed by [facility]. There will be no report generated by a [facility] Radiologist. Narrative [facility] - 04/01/2023 12:46 PM ASSOCIATE PROFESSOR OF COUNSELING EXAMINATION: Images For Reference Purposes Only us [...] COVID: Suspected 04/13/2024 04/13/2024 04/13/2024 11:43 AM ASSOCIATE PROFESSOR OF COUNSELING documented as of this encounter Care Teams Assistant Manager Quality Management Relationship Specialty Start Date End Date Aaron Tirado MD [address] [place] [address] PCP - General 06/24/07 02/03/23 documented as of this encounter
--- OUTSIDE RECORDS SUMMARY | 2024-11-14 09:39 | XMS_ITS | Patient Health Record ---
Author Organization [facility] Address [address] [place] [address] Care Team Providers Care Astronaut Mission Specialist Name Role Phone Migration, Provider Unavailable Unavailable Allergies No Known Allergies Reason For Referral No Information Medications Medication SIG (Take, Route, Frequency, Duration) Notes Start Date End Date Status Venlafaxine HCl ER 75 MG 1 cap(s) orally once a day Active [place] 325 MG-5 MG 1 TAB(S) ORALLY EVERY 6 HOURS PRN; Duration: 3 DAYS *Please review and pick correct strength-formulatio n from Medispan options. If intended option is not shown, discontinue and re-order from Quick Search* 12/10/2021 Active Ketorolac Tromethamine 10 MG 1 tab(s) orally 4 times a day prn; Duration: 5 day(s) 12/10/2021 Active Social History Tobacco Use: Social History Observation Description Date Details (start date - stop date) Current Smoker NA - NA Smoking Status: Question Answer Notes Are you a: Current everyday smoker Encounters Encounter Location Date Provider Diagnosis [facility] [address] [place] [address] 07/23/2024 Provider Migration Closed displaced fracture of left calcaneus, unspecified portion of calcaneus, initial encounter S92.002A Assessments Encounter Date Diagnosis (ICD Code) Assessment Notes Treatment Notes Treatment Clinical Notes Section Notes 07/23/2024 Closed displaced fracture of left calcaneus, unspecified portion of calcaneus, initial encounter (ICD-10 - S92.002A) Plan Of Treatment Pending Test Test Name Order Date Calcaneus 12/10/2021 Insurance Providers Payer Name Payer Address Payer Phone Subscriber Number Group Number Insured Name Patient Relationship to Insured Coverage Start Date Coverage End Date [employer] [place] [address] [place] [id number] M Angélica Rodarte Self - patient is the insured Medications Administered Medication Instructions Date of Administration Dosage Notes Celestone 2 ml 07/22/2021 2 mL Medical (General) History Medical History History ICD Code breast cancer 2013, radiation anxiety dvt PE Surgical History Surgery Date(Month/Year) lumpectomy 2013 C x2 tubal ligation ablation right knee surgery 03/2016 Hospitalization History Reason Date(Month/Year) Blood clot see above
[2024-11-14 09:40] VITALS: BP 127/99; PULSE 94; RESP 14; TEMP 36.7; O2SAT 99
--- NOTE | 2024-11-14 09:40 | ED_ITS ---
HPI - Extremity Injury (Lower) General Chief Complaint: Extremity Problem,Nontraumatic Stated Complaint: Right Foot Injury Time Seen by Provider: 11/14/24 10:11 Source: patient and RN notes reviewed Mode of arrival: ambulatory Limitations: no limitations History of Present Illness HPI Narrative: 59-year-old female presents with concern for pain to her right foot. Reports about 2 weeks ago she had 2 separate instances that could have caused injury. She reports a large dog stepped on her foot and then shortly after she stepped on a rock in a [place]. Reports that since she has had dorsal foot pain beneath digits 3 4 and 5. Reports tenderness to that area. Reports pain radiates to the relative pedal area. She reports she has used ice without relief. She denies decreased range of motion, sensation, strength. She reports pain with flexion of the toes. MD complaint: foot injury Related Data Home Medications ?Medication ?Instructions ?Recorded ?Confirmed ?Last Taken ?Type atorvastatin 10 mg tablet mg 11/14/24 Unknown History levothyroxine 25 mcg tablet mcg 11/14/24 Unknown History venlafaxine 150 mg mg PO 11/14/24 Unknown History capsule,extended release 24 hr Allergies Allergy/AdvReac Type Severity Reaction Status Date / Time doxycycline Allergy Unknown unknown Verified 11/14/24 09:44 Review of Systems Review of Systems: CONSTITUTIONAL: Denies malaise, chills, sweats, or fever. SKIN: Denies rash or itching, open skin, laceration, abrasion, redness, warmth, swelling. MUSCULOSKELETAL: Reports left foot pain NEUROLOGIC: Denies numbness, weakness All systems reviewed & are unremarkable except as noted in HPI and below PMFSH Comments At time of signature, agree with nursing past medical, surgical, social and family history. There is no relevant family history pertinent to the presenting complaint Exam Narrative: GENERAL: Well-appearing, well-nourished, and in no acute distress. HEAD: Normocephalic, atraumatic. EYES: PERRLA, conjunctivae clear NECK: Supple. CHEST: Speaks in full sentences. No respiratory distress. HEART: Regular rate and rhythm. Normal and equal peripheral pulses. EXTREMITIES: Left foot, digits have grossly normal strength and sensation, grossly normal range of motion. No edema or ecchymosis. 5/5 strength with digit flexion and extension. Normal sensation with sensitivity to light touch and pain. No point tenderness. No open wounds, no skin tenting, no devitalized tissue or atrophy, no trophic changes, no obvious deformity, alignment normal, nearby joints and structures intact. Distal pulses palpable and equal bilaterally, skin warm, dry, pink. Capillary refill less than 3 seconds. SKIN: Warm, dry, no rash. NEURO: Alert and oriented x3. PSYCH: Normal mood and affect Course Course Emergency Course: Patient is aware of diagnosis, understands and agrees to treatment plan. Anticipatory guidance given. Patient agrees to follow-up as directed and is aware of reasons to seek care at the emergency department. Portions of this record may have been created with voice recognition software Level of Care: Express Care Visit Vital Signs Vital signs: Reviewed. MDM - Extremity Injury (Lower) MDM Narrative Medical decision making narrative: The patient was evaluated by myself in the express care. History is obtained from patient who is an independent historian and physical exam was performed.? Available medical records were reviewed at this time. ? Exam findings show no acute concerns or changes; patient is non-toxic appearing and is in no distress. Patient is appropriate for outpatient treatment and follow-up. ? I have evaluated and discussed social determinants of health with the patient that could potentially impact subsequent diagnosis and treatment plans. ? Patients injury and pain is consistent with musculoskeletal etiology. No signs of neurological or vascular compromise on exam. Compartments and tissues are soft without signs of compartment syndrome. Pain is felt appropriate for further evaluation on an outpatient basis. Imaging Data My impression: Images reviewed, interpreted by radiologist, agree, see report. Radiologist's impression: XR foot RT min 3V 11/14/2024 10:02 Indication: Right foot pain Procedure: 4 views right foot Comparison: No prior studies for comparison. 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 Lisfranc joint intact. No acute fracture, subluxation or dislocation. There is a degenerative calcaneal enthesophyte at the plantar surface. No focal soft tissue abnormality. No foreign bodies. Impression: 1: No acute fracture. Critical Care Time Critical Care Time Critical Care Time: No Discharge Plan Discharge Clinical Impression: Foot sprain Patient Disposition: Home Condition: Stable Instructions: Foot Sprain (ED) Additional Instructions: Avoid activities that cause pain until the pain subsides. Ice to the area 20-30 minutes 4-6 times a day Elevate above heart Elastic wrap or orthopedic splint as directed for comfort for the next 5-7 days Tylenol for lesser pain Ibuprofen regularly for the next 2-3 days for the inflammation Follow up with your primary care provider if the condition is not improving within 1 week. If the condition worsens with numbness, tingling, decrease sensation with weakness seek treatment in the emergency room immediately. Patient Language: Luxembourger Prescriptions: No Action atorvastatin 10 mg tablet venlafaxine 150 mg capsule,extended release 24hr PO levothyroxine 25 mcg tablet Follow-up/Referrals: Moses,Meron Caicedo [Primary Care Provider] - Time of Disposition: 10:20
== END 2024-11-14 09:48 | disposition home or self-care (01) ==
PROVIDERS: Emergency Provider Nurse Practitioner; PCP Nurse Practitioner
DX: S93.601A Unspecified sprain of right foot, initial encounter (principal); W54.8XXA Other contact with dog, initial encounter
CPT/HCPCS: 73630; 99213; G0463